=== PATIENT | male | born 1975 | race Caucasian/White ===

== ENCOUNTER 2016-08-28 20:48 | Emergency (ER) | payer BC ==
[~2016-08-28] VITALS: Ht 185.4 cm; Wt 117.8 kg
[2016-08-28 21:12] LABS: ADD MIUA? NO; BILIRUBIN NEGATIVE; BLOOD NEGATIVE; COLOR YELLOW ((YELLOW)); GLUCOSE (STRIP) NEGATIVE; KETONES NEGATIVE; LEUKOCYTES NEGATIVE; NITRITE NEGATIVE; PROTEIN (STRIP) NEGATIVE; SPECIFIC GRAVITY 1.011 (1.000-1.030); UCUL ADDED? NO; UROBILINOGEN 0.2 MG/DL (0.2-1.0)
[2016-08-28 21:19] LABS: HEMATOCRIT 45.6 % (38.0-50.0); MCH 27.8 PG (29.0-34.0); MCV 81.9 FL (86-99); MEAN PLAT.VOLUME 10.1 uM^3 (9.0-12.4); PLATELET COUNT 229 K/uL (156-360); RBC DIS.WIDTH-CV 13.1 % (11.8-14.6); RBC DIS.WIDTH-SD 38.8 % (39-53); RED BLOOD COUNT 5.57 M/uL (4.00-5.50)
[2016-08-28 21:33] LABS: CHLORIDE 104 mEq/L (99-109); POTASSIUM 4.5 mEq/L (3.7-5.4); SODIUM 140 mEq/L (136-147)
[2016-08-28 21:36] LABS: GLUCOSE 96 mg/dL (70-99)
[2016-08-28 21:37] LABS: ANION GAP 8 MEQ/L (2-14)
[2016-08-28 21:38] LABS: TOTAL BILIRUBIN 1.2 mg/dL (0.0-1.0)
[2016-08-28 21:39] LABS: ALKALINE PHOSPHATASE 106 IU/L (3-129); GFR ESTIMATE (CALCULATED) > 59 mL/min/
[2016-08-28 21:40] LABS: UREA NITROGEN (BUN) 13 mg/dL (9-23)
[2016-08-28 22:22] LABS: LIPASE 46 U/L (1.0-51.0)
[2016-08-29 00:50] VITALS: BP 145/92
== END 2016-08-29 00:51 | disposition home or self-care (01) ==
LOC: EME 20:48
DX: R10.10 Upper abdominal pain, unspecified (principal); R74.8 Abnormal levels of other serum enzymes
CPT/HCPCS: 74177; 80053; 81003; 83605; 83690; 85027; 99281; 99284; J7030